=== PATIENT | female | born 1950 ===

== ENCOUNTER 2018-08-03 12:24 | Outpatient (RCR) | payer MEDICARE, OTHER ==
[2018-08-03] MEDS ORDERED: LIDOCAINE/PRILOCAINE 2.5-2.5% KIT ONE (13:43)
== END 2018-08-28 ==
LOC: WCC 12:24
PROVIDERS: ATTEND Internal Medicine Infectious Disease
DX: E11.21 Type 2 diabetes mellitus with diabetic nephropathy (principal); L03.116 Cellulitis of left lower limb; S81.852A Open bite, left lower leg, initial encounter; S81.802A Unspecified open wound, left lower leg, initial encounter; G89.29 Other chronic pain